=== PATIENT | male | born 1985 | race Caucasian/White ===

== ENCOUNTER 2021-01-01 10:31 | Emergency (ER) | payer MEDICAID ==
[~2021-01-01] VITALS: Ht 170.2 cm; Wt 70.5 kg
[2021-01-01 10:36] VITALS: BP 112/66
[2021-01-01] MEDS ORDERED: PRED20TA PO ×2 (10:56→11:07)
[2021-01-01] MEDS ORDERED: DIAZ5TAB PO ×2 (10:56→11:07)
== END 2021-01-01 11:21 | disposition home or self-care (01) ==
LOC: ER 10:32
DX: S39.012A Strain of muscle, fascia and tendon of lower back, initial encounter (principal); F12.90 Cannabis use, unspecified, uncomplicated; Z88.0 Allergy status to penicillin; Z72.89 Other problems related to lifestyle; Z79.899 Other long term (current) drug therapy; X50.9XXA Other and unspecified overexertion or strenuous movements or postures, initial encounter; Y93.44 Activity, trampolining; Y92.89 Other specified places as the place of occurrence of the external cause; Y99.8 Other external cause status
CPT/HCPCS: 99283